=== PATIENT | male | born 1985 | race Caucasian/White ===

== ENCOUNTER 2016-08-19 20:43 | Emergency (ER) | payer OTHER ==
[2016-08-19] MEDS ORDERED: PROPARACAINE 0.5% OPHTH DROPS 15 ML ONE (20:51)
[2016-08-19] MEDS ORDERED: PROPARACAINE 0.5% OPHTH DROPS 15 ML RIGHTEYE STA (21:24)
[2016-08-19] MEDS ORDERED: POLYMYXIN B/TRIMETH OPHTH DROPS RIGHTEYE STA (21:52)
[2016-08-19] MEDS ORDERED: POLYMYXIN B/TRIMETH OPHTH DROPS ONE (21:55)
== END 2016-08-19 22:04 | disposition home or self-care (01) ==
DX: S05.01XA Injury of conjunctiva and corneal abrasion without foreign body, right eye, initial encounter (principal); H57.02 Anisocoria; X58.XXXA Exposure to other specified factors, initial encounter; F17.200 Nicotine dependence, unspecified, uncomplicated
CPT/HCPCS: 99283; A9270; J3490

== ENCOUNTER 2017-07-31 21:47 | Emergency (ER) | payer OTHER ==
--- NOTE | 2017-07-31 22:52 | ED Physician Documentation ---
PD HPI URI - Stated complaint Stated Complaint: HEADACHE,BODY ACHE - Chief complaint Chief Complaint: Heent - History obtained from History obtained from: Patient - History of Present Illness Timing - onset: Yesterday Timing duration: Days (1-2) Timing details: Abrupt onset, Still present Associated symptoms: Fever, Chills, Nasal congestion, Sore throat, Dry cough, NVD Contributing factors: Sick contact Similar symptoms before: Has not had sx before Recently seen: Not recently seen Review of Systems Constitutional: reports: Fever, Chills, Myalgias, Fatigue Nose: reports: Rhinorrhea / runny nose, Congestion Throat: reports: Sore throat Respiratory: reports: Cough GI: reports: Nausea, Diarrhea (mild). denies: Vomiting Skin: denies: Rash Neurologic: reports: Generalized weakness PD PAST MEDICAL HISTORY - Past Medical History Past Medical History: No Cardiovascular: None Respiratory: None Neuro: None Endocrine/Autoimmune: None - Past Surgical History Past Surgical History: No - Present Medications Home Medications: Ambulatory Orders Medication Instructions Recorded Confirmed Dexamethasone [Decadron] 4 mg PO DAILY #5 tablet 07/31/17 Ondansetron Odt [Zofran] 4 mg TL Q6H PRN #15 tablet 07/31/17 - Allergies Allergies/Adverse Reactions: Allergies Allergy/AdvReac Type Severity Reaction Status Date / Time No Known Drug Allergies Allergy Verified 07/31/17 22:05 - Social History Does the pt smoke?: Yes Smoking Status: Current every day smoker Does the pt drink ETOH?: No Does the pt have substance abuse?: No - Immunizations Immunizations are current?: Yes - POLST Patient has POLST: No PD ED PE NORMAL - Vitals Vital signs reviewed: Yes - General General: Alert and oriented X 3, No acute distress, Well developed/nourished - HEENT HEENT: Ears normal, Pharynx benign - Neck Neck: Supple, no meningeal sign, No adenopathy - Cardiac Cardiac: RRR, No murmur - Respiratory Respiratory: Clear bilaterally - Abdomen Abdomen: Soft, Non tender - Derm Derm: Normal color, Warm and dry, No rash Results - Vitals Vitals: Vital Signs - 24 hr 07/31/17 07/31/17 22:03 23:51 Temperature 36.7 C 36.4 C L Heart Rate 90 84 Respiratory 18 15 Rate Blood Pressure 122/76 129/83 H O2 Saturation 98 99 Oxygen O2 Source Room air PD MEDICAL DECISION MAKING - ED course Complexity details: considered differential (discussed flu testing versus just calling it the flu and he is okay with calling it the flu. Did not want work note. Discussed pros/cons of Tamiflu and he opted not to get it. ), d/w patient Departure - Departure Disposition: 01 Home, Self Care Clinical Impression: Flu-like symptoms, Influenza Condition: Stable Record reviewed to determine appropriate education?: Yes Instructions: ED Flu Follow-Up: Adalberto Oliva MD [Primary Care Provider] - Prescriptions: Dexamethasone [Decadron] 4 mg PO DAILY #5 tablet Ondansetron Odt [Zofran] 4 mg TL Q6H PRN #15 tablet PRN Reason: Nausea / Vomiting Comments: This does sound like the flu. Drink lots of fluids. Tylenol or ibuprofen if needed for fevers and pains. Add ondansetron if needed for nausea if that develops. You could consider adding Decadron daily for 5 days for inflammation. Neither these are required per se. Activity as able. Discharge Date/Time: 07/31/17 23:52
[2017-07-31] MEDS ORDERED: ACETAMINOPHEN 325 MG TABLET PO STA (23:38)
[2017-07-31] MEDS ORDERED: DEXAMETHASONE 10 MG/ML VIAL PO STA (23:38)
[2017-07-31] MEDS ORDERED: CHERRY SYRUP 10 ML UDC PO ONE (23:49)
[2017-07-31 23:52] VITALS: BP 129/83
== END 2017-07-31 23:52 | disposition home or self-care (01) ==
LOC: ED 21:47
DX: J11.1 Influenza due to unidentified influenza virus with other respiratory manifestations (principal); F17.200 Nicotine dependence, unspecified, uncomplicated
CPT/HCPCS: 99283; A9270